=== PATIENT | female | born 1975 | race Caucasian/White ===

== ENCOUNTER → 2017-07-01 15:30 | Outpatient (CLI) | payer MEDICAID ==
[2015-03-19 08:20] VITALS: BMI 27.1
[~2017-07-01 15:30] MED LIST: ADIPEX-P37.5 MG PO; MELATONIN 3 MG1 TAB PO; PERCOCET 10/3251 TA1 PO; SLEEP AIDE PO
== END | disposition home or self-care (01) ==
LOC: D.CT 10:00
DX: R93.3 Abnormal findings on diagnostic imaging of other parts of digestive tract (principal); K31.89 Other diseases of stomach and duodenum

== ENCOUNTER → 2017-12-09 21:16 | Outpatient (CLI) | payer MEDICAID ==
[2015-03-19 08:20] VITALS: BMI 27.1
== END | disposition home or self-care (01) ==
LOC: D.MAMMO 15:30
DX: Z12.31 Encounter for screening mammogram for malignant neoplasm of breast (principal)

== ENCOUNTER → 2018-08-18 09:40 | Outpatient (CLI) | payer MEDICAID ==
[2015-03-19 08:20] VITALS: BMI 27.1
== END | disposition home or self-care (01) ==
LOC: D.RAD 08-15 08:00
DX: K21.9 Gastro-esophageal reflux disease without esophagitis (principal); K22.70 Barrett's esophagus without dysplasia

== ENCOUNTER 2018-08-31 18:47 | Emergency (ER) | payer MEDICAID ==
[~2018-08-31] VITALS: Ht 157.5 cm; Wt 62.6 kg
[2018-08-31 19:13] VITALS: Ht 157.5 cm; Wt 62.6 kg
[2018-08-31] MEDS ORDERED: LUNESTA2 M1 PO (19:15)
[2018-08-31] MEDS ORDERED: VOLTAREN75 MG PO (20:27)
[2018-08-31] MEDS ORDERED: BACLOFEN20 M1 PO (20:27)
[2018-08-31 20:54] VITALS: BP 140/70
== END 2018-08-31 20:58 | disposition home or self-care (01) ==
LOC: D.ER 18:47
DX: M25.512 Pain in left shoulder (principal); M79.18 Myalgia, other site; M54.2 Cervicalgia